=== PATIENT | male | born 1965 | race Caucasian/White ===

== ENCOUNTER 2020-06-09 07:05 | Day surgery (SDC) | payer OTHER ==
[~2020-06-09] VITALS: Ht 177.8 cm; Wt 98.9 kg
[2020-06-09 09:12] VITALS: BP 118/64
[2020-06-09 13:00] VITALS: BP 127/75
== END 2020-06-09 13:00 | disposition home or self-care (01) ==
LOC: GI 07:05
PROVIDERS: ATTEND Internal Medicine Gastroenterology
DX: R19.5 Other fecal abnormalities (principal); K64.8 Other hemorrhoids; I10 Essential (primary) hypertension; E66.9 Obesity, unspecified; Z68.31 Body mass index [BMI] 31.0-31.9, adult; Z79.82 Long term (current) use of aspirin; Z79.899 Other long term (current) drug therapy
CPT/HCPCS: 45378; J1200; J1610; J2250; J2310; J3010; J3490